=== PATIENT | female | born 1950 | race Caucasian/White ===

== ENCOUNTER → 2017-03-29 | Outpatient (CLI) | payer OTHER, MEDICARE ==
[~2017-03-29] MED LIST: A/B OTIC15 ML; ATI1 PO; COL100 PO; CYMBALTA PO; GLU5 PO; GLU500 PO; HYDROCHLOROTHIA25 MG PO; IBUPROFEN800 MG PO; KEFLEX250 MG PO; KETOROLAC TROME10 MG PO; LAC PO; LEVOTHYROXIN PO; LOSARTAN/HCTZ; NOR10T PO; NOR5 PO; OXYBUTYNIN CHLO15 M1 PO; OXYBUTYNIN PO; PRI20 PO; TEN25 PO; TRAZADONE PO
== END | disposition home or self-care (01) ==
LOC: MA 13:03
PROC: BH02ZZZ Plain Radiography of Bilateral Breasts (ICD-10-PCS; principal; 2017-03-29)
DX: Z12.39 Encounter for other screening for malignant neoplasm of breast (principal)
CPT/HCPCS: G0202

== ENCOUNTER 2017-08-04 20:52 | Emergency (ER) | payer OTHER, MEDICARE ==
[2017-08-04 23:35] VITALS: BP 145/75
== END 2017-08-04 23:35 | disposition home or self-care (01) ==
LOC: ED 20:52
DX: M54.16 Radiculopathy, lumbar region (principal); I10 Essential (primary) hypertension; G89.29 Other chronic pain; K21.9 Gastro-esophageal reflux disease without esophagitis; Z79.899 Other long term (current) drug therapy; Z88.5 Allergy status to narcotic agent
CPT/HCPCS: J1170; Q0162

== ENCOUNTER → 2017-12-10 | Outpatient (CLI) | payer OTHER, MEDICARE ==
[2017-12-10 12:29] LABS: BASOPHIL % 0.6 % (0-2); PLATELET COUNT 333 x10^3mcL (130-400)
[2017-12-10 12:41] LABS: ALBUMIN 3.9 g/dL (3.4-5.0); BILIRUBIN TOTAL 0.7 mg/dL (0.20-1.00); CALCIUM 9.4 mg/dL (8.5-10.1); CARBON DIOXIDE 31.1 mmol/L (21-32); CREATININE SERUM 1.3 mg/dL (0.6-1.0); POTASSIUM SERUM 4.2 mmol/L (3.5-5.1)
[2017-12-10 12:52] LABS: FREE T4 1.14 ng/dL (0.76-1.46); FREE THYROXINE INDEX 3.2 ug/dL (1.4-4.5); T4(THYROXINE) 9.2 ug/dL (4.7-13.3)
[2017-12-10 13:01] LABS: CHOLESTEROL/HDL RATIO 3.9
[2017-12-10 13:44] LABS: T3 TOTAL 1.02 ng/mL
[2017-12-10 14:31] LABS: ERYTHROCYTE SED RATE 30 mm/hr (0-30)
== END | disposition home or self-care (01) ==
LOC: LB 11:28
PROVIDERS: Family Medicine
DX: E11.9 Type 2 diabetes mellitus without complications (principal); E03.9 Hypothyroidism, unspecified; M79.7 Fibromyalgia
CPT/HCPCS: 84439; 86200; 86431

== ENCOUNTER 2018-08-25 08:48 | Emergency (ER) | payer OTHER, MEDICARE ==
[~2018-08-25] VITALS: Ht 157.5 cm; Wt 129.3 kg
[2018-08-25 08:52] VITALS: BP 156/111; Ht 157.5 cm; Wt 129.3 kg
== END 2018-08-25 11:58 | disposition home or self-care (01) ==
LOC: ED 08:48
DX: M17.9 Osteoarthritis of knee, unspecified (principal); I10 Essential (primary) hypertension; F41.9 Anxiety disorder, unspecified; F32.9 Major depressive disorder, single episode, unspecified; E03.9 Hypothyroidism, unspecified; K21.9 Gastro-esophageal reflux disease without esophagitis; G89.29 Other chronic pain; M54.9 Dorsalgia, unspecified; Z88.5 Allergy status to narcotic agent; Z90.711 Acquired absence of uterus with remaining cervical stump; Z90.89 Acquired absence of other organs
CPT/HCPCS: J1885; Q0163

== ENCOUNTER → 2019-10-13 | Outpatient (CLI) | payer OTHER, MEDICARE ==
[2019-10-13 12:47] LABS: BASOPHIL % 0.4 % (0-2); PLATELET COUNT 324 x10^3mcL (130-400); RED CELL DISTRIBUTION WIDTH 14.3 % (11.5-14.5)
[2019-10-13 13:09] LABS: ALBUMIN 4.1 g/dL (3.4-5.0); BILIRUBIN DIRECT 0.11 mg/dL (0.0-0.2); BILIRUBIN TOTAL 0.51 mg/dL (0.20-1.00); CALCIUM 9.2 mg/dL (8.5-10.1); CARBON DIOXIDE 29.6 mmol/L (21-32); CHOLESTEROL/HDL RATIO 4.3; CREATININE SERUM 1.3 mg/dL (0.6-1.0); FREE T4 1.12 ng/dL (0.76-1.46); POTASSIUM SERUM 4.4 mmol/L (3.5-5.1)
[2019-10-13 14:04] LABS: ERYTHROCYTE SED RATE 38 mm/hr (0-30)
[2019-10-14 08:06] LABS: microalbumin:creatinine ratio 73.7 (0.0-30.0)
== END | disposition home or self-care (01) ==
LOC: LB 12:19
PROVIDERS: Internal Medicine
DX: Z00.00 Encounter for general adult medical examination without abnormal findings (principal); M79.7 Fibromyalgia
CPT/HCPCS: 84439